=== PATIENT | female | born 1940 | race African-American/Black ===

== ENCOUNTER 2017-09-25 14:08 | Outpatient (CLI) | payer MEDICARE | END 2017-09-25 14:09 | disposition home or self-care (01) | LOC: BICMAMMO 14:08 | PROVIDERS: ATTEND Internal Medicine | DX: Z12.31 Encounter for screening mammogram for malignant neoplasm of breast (principal); Z80.3 Family history of malignant neoplasm of breast | CPT/HCPCS: 77063; 77067 ==